=== PATIENT | male | born 1955 | race Two or more races ===

== ENCOUNTER 2025-05-09 11:14 | Inpatient (IN) | payer OTHER ==
[~2025-05-09] VITALS: Ht 180.3 cm; Wt 84.4 kg
[2025-05-09] MEDS ORDERED: PANTOPRAZOLE SODIUM 40 MG/VIAL VIAL IV ONE (11:30)
[2025-05-09] MEDS ORDERED: 0.9 % SODIUM CHLORIDE 1,000 ML IV SCH ×2 (11:30→16:00)
--- NOTE | 2025-05-09 13:10 | NUR ---
PACIENTE ALERTA Y ORIENTADO X3 QUIEN SE ENCONTRABA REALIZANDOSE MUESTRAS D LABORTORIO Y LE REPORTAN PANICO DE HGB. SE MONITOREAN S/V Y SE UBICA PACIENTE.
[2025-05-09] MEDS ORDERED: BISOPROLOL FUMA10 MG (13:11)
[2025-05-09 13:23] LABS: BASO % 0.1 % (0.1-1.2); EOS # 0.05 (0.04-0.54); EOS % 0.3 % (0.7-7.0); LYMPH # 0.77 (1.18-3.74); LYMPH % 5.3 % (19.3-53.1); MEAN PLATELET VOLUME 10.70 fl (9.4-12.4); MONO # 0.49 (0.24-0.82); MONO % 3.3 % (4.7-12.5); NEUT # 12.40 (1.56-6.13); NEUT % 84.7 % (34.0-71.1); RED CELL DISTRIBUTION WIDTH 17.3 % (11.6-14.4)
--- NOTE | 2025-05-09 13:50 | NUR ---
SE RECIBE PACIENTE EN AREA DE ICU 2 SE UBICA EN CAMA #2 EN CAMA CON BARANDAS ELEVADAS Y EN ROTH NIVEL MAS BAJO POR PRECUACION A CAIDAS, SE CONECTA A MONITOR CARDIACO Y OXIMETRIA CONTINUA, SE LE COLOCA CANULA NASAL A 2LT. SE LE CANALIZA X2 CON ANGIOS #18 EN BRAZO DERECHO, SE LE COLOCA 0.9%NSS BAJANDO A 125ML/HR. SE LE ADMINISTRAN MEDICAMENTOS MARIAM ORDEN SE LE COLECTAN MUESTRAS PENDIENTE Y SE LE SAMIRA TUBOS PILOTOS PARA REQUISION DE 3 UNIDADES PRBC'S FRACCIONADAS. SE LLEVAN LAS MISMAS A BANCO DE ANA Y PERSONAL DE [place] INFORMA QUE PACIENTE TIENE RECORD PREVIO VIGENTE EN BANCO. INFORMACION DE PACIENTE FUE CORROBORADA CON EL MISMO. PERMISO DE TRANSFUCION FUE TOMADO Y SE ADJUNTA A RECORD DE PACIENTE. PENDIENTE ESTUDIO DE CT EL CUAL FUE NOTIFICADO A PERSONAL CORRESPONDIENTE DE TUR[place]. SE MANTIENE PACIENTE BAJO OBSERVACION POR CAMBIOS EN ROTH CONDICION.
[2025-05-09 14:05] LABS: ALT/SGPT 19.0 U/L (12-78); AST/SGOT 21.0 U/L (15-37); BILIRUBIN TOTAL 0.47 mg/dL (0.3-1.2); BUN CREA RATIO 24.0 (7.0-25.0); CREATININE SERUM 1.29 mg/dL (0.70-1.30); GFR 55.06; GLOBULINA 2.8 G/DL (2.4-3.5); GLUCOSE FASTING 99.0 mg/dL (65-100); OSMOLALITY SERUM 295.0 MOSM/KG (275-295)
[2025-05-09 14:59] LABS: URINE APPEARANCE Clear; URINE BILIRRUBIN Negative (NEGATIVE); URINE BLOOD Negative; URINE COLOR Yellow; URINE GLUCOSE Negative (NEGATIVE); URINE KETONE Negative (NEGATIVE); URINE LEUKOCYTE Large; URINE NITRATE Positive; URINE PROTEIN Negative (NEGATIVE); URINE UROBILINOGEN 1.0 E.U./dl
[2025-05-09 15:00] LABS: URINE EPITHELIAL CELLS 12.7 uL (0.0-38.8); URINE RBC 3.0 uL (0.0-20.8); URINE WBC 255.9 uL (0.0-23.2)
[2025-05-09 15:35] LABS: URINE BACTERIA > 9821.5 uL (0.0-1933); URINE CAST 0.58 uL (0.0-1.40)
[2025-05-09 16:00] VITALS: BP 119/45; O2SAT 100
[2025-05-09] MEDS ORDERED: CEFTRIAXONE SODIUM 2,000 MG in 0.9 % SODIUM CHLORIDE 100 ML IV SCH (16:03)
[2025-05-09] MEDS ORDERED: ONDANSETRON HCL 4 MG in 0.9 % SODIUM CHLORIDE 50 ML IV PRN (16:15)
[2025-05-09] MEDS ORDERED: hydrALAZINE HCL 20 MG VIAL IV PRN (16:15)
[2025-05-09] MEDS ORDERED: ACETAMINOPHEN 500 MG GEL..CAP PO PRN (16:15)
[2025-05-09 16:18] LABS: BAND MAN 5.0 %; LYMPHOCYTE MAN 7.0 %; METAMYELOCYTE 3.0 %; MONOCYTE MAN 3.0 %; MYELOCYTE 2.0 %; NEUTROPHILS MAN 80.0 %
[2025-05-09] MEDS ORDERED: CEFTRIAXONE SODIUM 2,000 MG VIAL ONE (16:49)
[2025-05-09 17:00] VITALS: BP 119/50; O2SAT 100
[2025-05-09] MEDS ORDERED: IPRATROPIUM BROMIDE 0.5 MG/2.5 ML AMPUL.NEB IH SCH (17:00)
[2025-05-09 18:41] VITALS: BP 143/56
[2025-05-09 19:00] VITALS: BP 136/47; O2SAT 100
[2025-05-09 20:00] VITALS: BP 120/49; O2SAT 100
[2025-05-09 21:00] VITALS: BP 119/45; O2SAT 100
[2025-05-10 03:36] VITALS: BP 145/67; O2SAT 100
[2025-05-10 08:16] VITALS: BP 127/63; O2SAT 100
[2025-05-10] MEDS ORDERED: METOPROLOL SUCCINATE 25 MG TAB.SR.24H PO SCH (09:00)
[2025-05-10] MEDS ORDERED: PANTOPRAZOLE SODIUM 40 MG/VIAL VIAL IV SCH (09:00)
[2025-05-10] MEDS ORDERED: MEROPENEM 500 MG/VIAL VIAL IV SCH (17:00)
[2025-05-10] MEDS ORDERED: CLONAZEPAM 0.5 MG TABLET PO SCH (17:00)
[2025-05-10 19:01] VITALS: BP 124/61
[2025-05-11 04:35] VITALS: BP 150/73; O2SAT 100
[2025-05-11] MEDS ORDERED: ALLOPURINOL 100 MG TABLET PO SCH (09:00)
[2025-05-11 09:05] VITALS: BP 160/63; O2SAT 100
[2025-05-11] MEDS ORDERED: DIPHENHYDRAMINE HCL 50 MG/ML VIAL 1ML IV STA (12:08)
[2025-05-11] MEDS ORDERED: PREDNISOLONE ACETATE 1% OPHT DROPS.SUSP 5ML BOTT OP SCH (13:00)
[2025-05-11 18:23] VITALS: BP 153/77
[2025-05-11 22:16] LABS: BASO % 0.2 % (0.1-1.2); EOS # 0.13 (0.04-0.54); EOS % 1.6 % (0.7-7.0); LYMPH # 0.45 (1.18-3.74); LYMPH % 5.4 % (19.3-53.1); MEAN PLATELET VOLUME 10.10 fl (9.4-12.4); MONO # 0.18 (0.24-0.82); MONO % 2.2 % (4.7-12.5); NEUT # 7.40 (1.56-6.13); NEUT % 89.6 % (34.0-71.1); RED CELL DISTRIBUTION WIDTH 19.1 % (11.6-14.4)
[2025-05-11 22:29] LABS: ALT/SGPT 16.0 U/L (12-78); AST/SGOT 17.0 U/L (15-37); BILIRUBIN TOTAL 0.74 mg/dL (0.3-1.2); BUN CREA RATIO 13.0 (7.0-25.0); CREATININE SERUM 1.05 mg/dL (0.70-1.30); GFR 69.83; GLOBULINA 2.5 G/DL (2.4-3.5); GLUCOSE FASTING 100.0 mg/dL (65-100); OSMOLALITY SERUM 282.0 MOSM/KG (275-295)
[2025-05-11 22:42] LABS: TSH 0.575 uIU/mL (0.358-3.74)
[2025-05-11 22:48] LABS: PROSTATIC SPECIFIC ANTIGEN < 0.010 NG/ML (0.010-4.00)
[2025-05-12 02:56] VITALS: BP 141/68; O2SAT 100
[2025-05-12 09:16] VITALS: BP 140/71; O2SAT 100
[2025-05-12 21:15] VITALS: BP 152/75; O2SAT 100
[2025-05-13 01:15] VITALS: BP 158/80; O2SAT 98
[2025-05-13] MEDS ORDERED: PANTOPRAZOLE SODIUM 40 MG TABLET.DR PO SCH (09:00)
[2025-05-13 10:11] VITALS: BP 139/69; O2SAT 99
[2025-05-13 15:05] LABS: URINE APPEARANCE Clear; URINE BILIRRUBIN Negative (NEGATIVE); URINE BLOOD Small; URINE COLOR Yellow; URINE GLUCOSE Negative (NEGATIVE); URINE KETONE Negative (NEGATIVE); URINE LEUKOCYTE Trace; URINE NITRATE Negative; URINE PROTEIN Trace (NEGATIVE); URINE UROBILINOGEN 0.2 E.U./dl
[2025-05-13 15:09] LABS: URINE BACTERIA 19.1 uL (0.0-1933); URINE EPITHELIAL CELLS 1.6 uL (0.0-38.8); URINE RBC 10.2 uL (0.0-20.8); URINE WBC 30.6 uL (0.0-23.2)
[2025-05-13 15:12] LABS: URINE CAST 0.00 uL (0.0-1.40)
[2025-05-13] MEDS ORDERED: QUETIAPINE FUMARATE 25 MG TABLET PO STA (16:15)
[2025-05-13] MEDS ORDERED: TOBRAMYCIN/DEXAMETHASONE 20 DR/ML DROPS OP SCH (18:00)
[2025-05-13 19:23] VITALS: BP 147/70; O2SAT 100
[2025-05-13 22:10] LABS: BASO % 0.5 % (0.1-1.2); EOS # 0.18 (0.04-0.54); EOS % 2.4 % (0.7-7.0); LYMPH # 0.47 (1.18-3.74); LYMPH % 6.4 % (19.3-53.1); MEAN PLATELET VOLUME 10.40 fl (9.4-12.4); MONO # 0.35 (0.24-0.82); MONO % 4.8 % (4.7-12.5); NEUT # 6.29 (1.56-6.13); NEUT % 85.5 % (34.0-71.1); RED CELL DISTRIBUTION WIDTH 17.7 % (11.6-14.4)
[2025-05-13 22:50] LABS: FE 40.0 ug/dl (65-175); LDH 342.0 U/L (87-241)
[2025-05-14 03:34] VITALS: BP 140/68; O2SAT 100
[2025-05-14] MEDS ORDERED: SOD FERRIC GLUC COMPLX/SUCROSE 62.5 MG in 0.9 % SODIUM CHLORIDE 50 ML IV SCH (09:37)
[2025-05-14] MEDS ORDERED: CYANOCOBALAMIN (VITAMIN B-12) 1,000 MCG/ML VIAL IM SCH (09:38)
[2025-05-14 10:47] VITALS: BP 146/71; O2SAT 96
[2025-05-14 13:03] LABS: FOLIC ACID 11.64 ng/ml (4.78-20)
== END 2025-05-14 19:13 | disposition home or self-care (01) | DRG 690 ==
LOC: ER 11:14 → EDBD 12:38 → ER 12:38 → SEC-K 17:00 → MEDJ 21:47
PROVIDERS: General Practice; Internal Medicine; Internal Medicine Infectious Disease; ADMIT Internal Medicine; ATTEND Internal Medicine
PROC: BW21ZZZ Computerized Tomography (CT Scan) of Abdomen and Pelvis (ICD-10-PCS; principal; 2025-05-09)
PROC: 30233N1 Transfusion of Nonautologous Red Blood Cells into Peripheral Vein, Percutaneous Approach (ICD-10-PCS; 2025-05-09)
PROC: 3E0F7GC Introduction of Other Therapeutic Substance into Respiratory Tract, Via Natural or Artificial Opening (ICD-10-PCS; 2025-05-10)
PROC: BW28ZZZ Computerized Tomography (CT Scan) of Head (ICD-10-PCS; 2025-05-13)
DX: N39.0 Urinary tract infection, site not specified (principal); I11.0 Hypertensive heart disease with heart failure; I50.9 Heart failure, unspecified; C61 Malignant neoplasm of prostate; D64.9 Anemia, unspecified